=== PATIENT | female | born 1950 | race Caucasian/White ===

== ENCOUNTER 2024-01-04 10:16 | Emergency (ER) | payer MEDICARE ==
[2024-01-04] MEDS ORDERED: Morphine 4 MG/ML VIAL ONE (11:19)
[2024-01-04] MEDS ORDERED: Ondansetron PF 4 MG/2 ML Vial ONE ×2 (11:19→15:08)
[2024-01-04 11:51] LABS: #Basophils 0.05 10x3/uL (0.0-0.2); #Eosinphils 0.06 10x3/uL (0.0-0.5); #Monocytes 0.59 10x3/uL (0.0-1.1); #Neutrophils 6.07 10x3/uL (1.5-8.4); %Basophils 0.6 % (0.0-2.0); %Eosinophils 0.7 % (0.0-6.0); %Lymphocytes 18.9 % (18.0-47.0); %Neutrophils 72.2 % (40.0-75.0); Hematocrit 38.8 % (34.9-44.5); Hemoglobin 13.2 g/dL (12.0-15.5); Mean Corpuscular Volume 88.2 fL (81.6-98.3); Mean Platelet Volume 10.4 fL (7.4-10.4); Platelet Count 240 10x3/uL (150-450); RBC Distribution Width 13.1 % (11.5-14.5); White Blood Cell (WBC) Count 8.4 10x3/uL (3.5-10.5)
[2024-01-04 12:26] LABS: ALT (SGPT) 27 U/L (8-55); AST (SGOT) 43 U/L (5-34); Albumin 3.7 g/dL (3.4-4.8); Alkaline Phosphatase 72 U/L (40-110); Anion Gap 13 mmol/L (10-20); BUN (Urea Nitrogen) 14 mg/dL (9.8-20.1); Bilirubin, Total 0.6 mg/dL (0.2-1.2); Calc. Creatinine Clearance 0 mL/min (70-130); Calcium 9.9 mg/dL (7.8-10.44); Carbon Dioxide 25 mmol/L (23-31); Chloride 104 mmol/L (98-107); Estimated GFR 79; Globulin 3.4 g/dL (2.4-3.5); Glucose 106 mg/dL (83-110); Lipase 32 U/L (8-78); Potassium 4.1 mmol/L (3.5-5.1); Protein, Total 7.1 g/dL (5.8-8.1); Sodium 138 mmol/L (136-145)
[2024-01-04 12:32] LABS: Troponin I Less than 0.010 ng/mL (< 0.028)
[2024-01-04] MEDS ORDERED: Piperacillin/Tazobactam 4.5 GM VIAL ONE (14:31)
[2024-01-04] MEDS ORDERED: Lidocaine 2% PF 5 ML VIAL ONE (15:08)
[2024-01-04] MEDS ORDERED: Dexamethasone 20 MG/5 ML VIAL ONE (15:08)
[2024-01-04] MEDS ORDERED: SUCCINYLCHOLINE/SOD CL,ISO/PF 200 MG/10 ML SYRINGE FS ONE (15:08)
[2024-01-04] MEDS ORDERED: Rocuronium Bromide 10 MG/ML (10ML VIAL) ONE (15:08)
[2024-01-04] MEDS ORDERED: SUGAMMADEX SODIUM 200 MG/2 ML VIAL ONE ×2 (15:09→16:39)
[2024-01-04] MEDS ORDERED: PROPOFOL 20 ML ONE (15:09)
[2024-01-04] MEDS ORDERED: fentaNYL 50 mcg/mL 1 mL Vial ONE (15:09)
[2024-01-04] MEDS ORDERED: Bupivacaine PF 0.5% 30 ML VIAL ONE (15:11)
[2024-01-04] MEDS ORDERED: EPINEPHrine 1 MG/ML VIAL ONE (15:11)
[2024-01-04] MEDS ORDERED: Sevoflurane 250 ML INH ANEST BOTTLE ONE ×2 (15:21→17:20)
[2024-01-04] MEDS ORDERED: Ketorolac Tromethamine 30 MG (1 mL) VIAL ONE (16:42)
== END 2024-01-04 15:49 | disposition admitted as inpatient to this hospital (09) ==
LOC: CSHERS 10:16
PROC: 0FT44ZZ Resection of Gallbladder, Percutaneous Endoscopic Approach (ICD-10-PCS; principal; 2024-01-04)
DX: K81.2 Acute cholecystitis with chronic cholecystitis (principal); I10 Essential (primary) hypertension; E03.9 Hypothyroidism, unspecified; Z79.890 Hormone replacement therapy; Z79.899 Other long term (current) drug therapy
CPT/HCPCS: 47562; 71045; 76705; 80053; 83690; 84484; 85025; 93005; C1889; J0171; J0665; J1100; J1885; J2001; J2270; J2405; J2543; J2704; J3010; 88304; 96374; 96375

== ENCOUNTER 2024-06-09 11:46 | Outpatient (CLI) | payer MEDICARE | END 2024-06-09 11:47 | disposition home or self-care (01) | LOC: CSHMAMMO 11:46 | PROVIDERS: ATTEND Internal Medicine | DX: Z12.31 Encounter for screening mammogram for malignant neoplasm of breast (principal) | CPT/HCPCS: 77063; 77067 ==